=== PATIENT | male | born 1980 | race Caucasian/White ===

== ENCOUNTER 2017-01-23 09:20 | Inpatient (IN) | payer OTHER ==
[~2017-01-23] VITALS: Ht 185.4 cm; Wt 82.3 kg
--- NOTE | ~2017-01-23 | WRIGHTHP ---
[place], [place] PATIENT HISTORY AND PHYSICAL EXAM [id number] UNIT #: [id number] ROOM: 508 DOCTOR: HELENE BREAUX DO BIRTHDATE: [birth year] DOS: PRIMARY CARE PHYSICIAN: Dr. Enrrique Angela. The patient was seen and evaluated with the resident on 01/23/2017. Please see the resident's note for further details. ASSESSMENT: 1. Opiate dependence with acute withdrawal. 2. IV heroin abuse. 3. Mild neutropenia. 4. Thrombocytopenia. 5. Hepatitis C diagnosed in 2008 and has never been treated. 6. Tobacco abuse. 7. History of liver cancer diagnosed in August 2015 according to the patient, he has never been treated for this and all history is obtained from the patient and I do not have the records to verify this. PLAN: Continue medical stabilization with the current protocol. Continue supportive care. HELENE BREAUX DO CM:HISPHYS:PATIENT HISTORY AND PHYSICAL EXAMINATION 170 24 HELENE BREAUX DO 01/23/17 172 interface
[2017-01-23 10:18] VITALS: BP 126/71
[2017-01-23 10:56] LABS: BASO % 0.2 % (0.0-1.0); EOS # 0.1 10*3/uL (0.0-0.4); EOS % 1.1 % (1.0-4.0); HEMOGLOBIN 14.6 g/dl (14.0-18.0); LYMPH # 1.6 10*3/uL (1.3-4.4); LYMPH % 34.3 % (27.0-41.0); MEAN CELL VOLUME 85.2 fl (80.0-94.0); MEAN CORPUSCULAR HGB 29.6 pg (27.0-31.0); MEAN CORPUSCULAR HGB CONC 34.8 g/dl (33.0-37.0); MEAN PLATELET VOLUME 10.1 fl (9.6-12.3); MONO # 0.3 10*3/uL (0.1-1.0); NEUT # 2.7 10*3/uL (2.3-7.9); NEUT % 58.2 % (47.0-73.0); PLATELET COUNT AUTOMATED 129 10*3/uL (130-400); RED BLOOD COUNT 4.93 10*6/uL (4.50-5.90); RED CELL DISTRI WIDTH 12.3 % (0-14.5); WHITE BLOOD COUNT 4.7 10*3/uL (4.8-10.8)
[2017-01-23 11:08] LABS: BILIRUBIN NEGATIVE (NEGATIVE); BLOOD NEGATIVE (NEGATIVE); CLARITY CLEAR (CLEAR); COLOR YELLOW (YELLOW); GLUCOSE NEGATIVE (NEGATIVE); KETONE NEGATIVE (NEGATIVE); LEUKO ESTERASE NEGATIVE (NEGATIVE); NITRITE NEGATIVE (NEGATIVE); PROTEIN NEGATIVE (NEGATIVE); SPECIFIC GRAVITY 1.015 (1.005-1.030); UROBILINOGEN 0.2 E.U./dl (0.2-1.0)
[2017-01-23 11:10] LABS: ALBUMIN 3.3 gm/dl (3.1-4.5); ALKALINE PHOSPHATASE 69 U/L (45-117); BILIRUBIN, TOTAL 0.2 mg/dl (0.2-1.0); BUN 12 mg/dl (7-24); CARBON DIOXIDE 29 mmol/L (21-32); CHLORIDE 105 mmol/L (98-107); EST GLOM FILT AFRICAN AMERICAN > 60 ml/min; GLUCOSE 87 mg/dL (65-99); POTASSIUM 4.3 mmol/L (3.5-5.1); SGOT/AST 47 IU/L (3-35); SGPT/ALT 37 U/L (12-78); SODIUM 142 mmol/L (136-145); TOTAL PROTEIN 7.2 gm/dL (6.4-8.2)
[2017-01-23 11:14] LABS: PROTHROMBIN TIME 10.1 SECONDS (9.0-12.4)
[2017-01-23 11:18] LABS: URINE AMPHETAMINES < 1000 (1000ng/ml); URINE BARBITURATES < 200 (200ng/ml); URINE COCAINE < 300 (300ng/ml)
[2017-01-23 11:19] LABS: EPITHELIAL CELLS 0-2; URINE REFLEX COMMENT NO (NO); WBC 0-2 wbc/hpf (0-5)
[2017-01-23 16:00] VITALS: BP 104/64
[2017-01-23 20:00] VITALS: BP 124/71
[2017-01-24] VITALS: BP 125/68
[2017-01-24 08:00] VITALS: BP 122/72
[2017-01-24 12:00] VITALS: BP 119/66
[2017-01-24 16:00] VITALS: BP 114/61
[2017-01-24 20:00] VITALS: BP 141/70
[2017-01-25] VITALS: BP 121/63
[2017-01-25 08:00] VITALS: BP 107/68
[2017-01-25 12:00] VITALS: BP 129/80
[2017-01-25 16:00] VITALS: BP 124/65
== END 2017-01-25 17:36 | disposition left against medical advice (07) | DRG 894 ==
LOC: 5E 09:20
PROVIDERS: Emergency Medicine
DX: F11.23 Opioid dependence with withdrawal (principal); D69.6 Thrombocytopenia, unspecified; D70.9 Neutropenia, unspecified; F17.210 Nicotine dependence, cigarettes, uncomplicated; E44.1 Mild protein-calorie malnutrition; F41.9 Anxiety disorder, unspecified; M79.1 Myalgia; F15.10 Other stimulant abuse, uncomplicated; F12.10 Cannabis abuse, uncomplicated; B18.2 Chronic viral hepatitis C; Z71.6 Tobacco abuse counseling; Z85.05 Personal history of malignant neoplasm of liver; Z82.49 Family history of ischemic heart disease and other diseases of the circulatory system; Z68.23 Body mass index [BMI] 23.0-23.9, adult